=== PATIENT | male | born 1970 | race Caucasian/White ===

== ENCOUNTER 2018-02-09 21:49 | Emergency (ER) | payer OTHER ==
[2018-02-09] MEDS ORDERED: NS 1,000 ML IV ONE ×2 (22:01)
[2018-02-09] MEDS ORDERED: KETOROLAC 30 MG/1 ML SDV IVP ONE ×2 (22:01→23:36)
[2018-02-09] MEDS ORDERED: PROMETHAZINE HCL 25 MG/ML INJ IVP ONE (22:02)
--- NOTE | 2018-02-09 22:04 | EDPHY ---
H & P Stated Complaint: R Flank Pain - + noro virus Time Seen by Provider: 02/09/18 22:00 HPI/ROS: HPI: This is a 47-year-old male who presents with Chief Complaint: Right flank pain Location: Right flank Quality: Pain Duration: 2 hr prior to arrival Signs and Symptoms: no fever, no nausea, no vomiting, no hematemesis, no blood in stool, no abdominal bloating, no diarrhea, no back pain, no urinary symptoms , + testicular/groin pain, no indigestion, no chest pain, no shortness of breath Timing: Acute, constant Severity: Severe Context: Patient reports that approximately 2 hr ago he started to developed right upper flank pain that has now radiating into his right lower quadrant and into his groin. He has not urinated in over 4 hr. He reports that the pain is constant, severe, nonradiating in nature. He denies any fever, nausea, vomiting. No prior history of kidney stones. Eating and drinking well today. Patient reports that he had the norovirus several days ago. Modifying Factors: None Comment: ROS: A comprehensive 10 system review of systems is otherwise negative aside from elements mentioned in the history of present illness. MEDICAL/SURGICAL/SOCIAL HISTORY: Medical history: Generally healthy. Does not take any regular medications. Surgical history: Denies Social history: Family history noncontributory. CONSTITUTIONAL: Moderate distress, middle-aged white male, awake and alert HEENT: Atraumatic and normocephalic, PERRL, EOMI. Nares patent; no rhinorrhea; no nasal mucosal edema. Tympanic membranes clear. Oropharynx clear, no exudate and moist pink mucosa. Airway patent. No lymphadenopathy. No meningismus. Cardiovascular: Normal S1/S2, regular rate, regular rhythm, without murmur rub or gallop. PULMONARY/CHEST: Symmetrical and nontender. Clear to auscultation bilaterally. Good air movement. No accessory muscle usage. ABDOMEN: Soft, nondistended, moderate right flank pain, no rebound, + guarding , no peritoneal signs, no masses or organomegaly. No CVAT. EXTREMITIES: 2/2 pulses, strength 5/5, no deformities, no clubbing, no cyanosis or edema. NEUROLOGICAL: no focal neuro deficits. GCS 15. SKIN: Warm and dry, no erythema. no rash. Good capillary refill. Source: Patient Exam Limitations: No limitations - Personal History Current Tetanus/Diphtheria Vaccine: No Current Tetanus Diphtheria and Acellular Pertussis (TDAP): No - Medical/Surgical History Hx Asthma: No Hx Chronic Respiratory Disease: No Hx Diabetes: No Hx Cardiac Disease: No Hx Renal Disease: No Hx Cirrhosis: No Hx Alcoholism: No Hx HIV/AIDS: No Hx Splenectomy or Spleen Trauma: No Other PMH: denies - Social History Smoking Status: Never smoked Constitutional: Initial Vital Signs Temperature (C) 36.9 C 02/09/18 21:50 Heart Rate 78 02/09/18 21:50 Respiratory Rate 18 02/09/18 21:50 Blood Pressure 132/73 H 02/09/18 21:50 O2 Sat (%) 98 02/09/18 21:50 O2 Delivery Mode Room Air Allergies/Adverse Reactions: No Known Allergies Allergy (Unverified 02/09/18 21:50) Home Medications: Medication Instructions Recorded Tamsulosin HCl [Flomax 0.4 MG (*)] 0.4 mg PO DAILY #10 cap 02/10/18 oxyCODONE HCL/ACETAMINOPHEN 1 each PO Q4-6PRN PRN #12 tablet 02/10/18 [Percocet 7.5-325 mg Tablet] Medical Decision Making - Diagnostics Imaging Results: Imaging Impressions Abdomen/Pelvis CT 02/09/18 22:02 Impression: 1. Distal right 4.5 mm ureteral calculus, 2 cm upstream from the bladder, results in moderate hydronephrosis. 2. No nephrolithiasis 3. Otherwise negative study. Findings discussed with Emergency Department physician, Blanquita Costa at 22:22. Attention: This CT examination is specifically designed to evaluate patients who are clinically suspected of having acute obstructive uropathy. This examination does not use radiographic contrast, and as such, provides only a limited evaluation of the abdomen, pelvis and retroperitoneum. If there is further clinical suspicion for pathological conditions other than obstructive uropathy, a complete CT evaluation of the abdomen and pelvis utilizing intravenous, oral, and rectal contrast should be considered. ED Course/Re-evaluation: Vital signs reviewed and stable upon arrival. No systemic signs. IV access and laboratory studies, urinalysis including CT abdomen and pelvis scan without contrast ordered Patient given 2 L normal saline, IV promethazine 12.5 mg, IV Toradol 30 mg and IV morphine 4 mg 2220: Called by Dr. Mandujano, CT abdomen and pelvis scan shows 4.5 x 3 mm distal right ureteral calculus that is approximately 2 cm superior to the bladder with moderate hydronephrosis. 2335: Urine sample obtained. Patient now shivering in complaining of 4/10 right flank pain. IV Toradol 30 mg and IV morphine 4 mg given 0040: Reassessed patient who reports relief of symptoms. He is comfortable being discharged home with pain medication and urology follow-up. This patient was seen under the supervision of my secondary supervising physician. I evaluated care for this patient independently. Discussed this patient with Dr. Norman who did not see the patient. Differential Diagnosis: Flank pain including but not limited to musculoskeletal causes, kidney stone, pyelonephritis, shingles, and intra-abdominal causes such as diverticulitis and appendicitis. - Data Points Laboratory Results: Laboratory Results 02/09/18 22:05 02/09/18 22:05 02/09/18 02/09/18 02/09/18 23:35 22:05 22:05 WBC 7.20 10^3/uL 10^3/uL (3.80-9.50) RBC 5.05 10^6/uL 10^6/uL (4.40-6.38) Hgb 16.2 g/dL g/dL (13.7-17.5) Hct 46.3 % % (40.0-51.0) MCV 91.7 fL fL (81.5-99.8) MCH 32.1 pg pg (27.9-34.1) MCHC 35.0 g/dL g/dL (32.4-36.7) RDW 13.0 % % (11.5-15.2) Plt Count 251 10^3/uL 10^3/uL (150-400) MPV 9.8 fL fL (8.7-11.7) Neut % (Auto) 81.6 % H % (39.3-74.2) Lymph % (Auto) 13.1 % L % (15.0-45.0) [place] % (Auto) 4.6 % % (4.5-13.0) Eos % (Auto) 0.3 % L % (0.6-7.6) Baso % (Auto) 0.1 % L % (0.3-1.7) Nucleat RBC Rel Count 0.0 % % (0.0-0.2) Absolute Neuts (auto) 5.88 10^3/uL 10^3/uL (1.70-6.50) Absolute Lymphs (auto) 0.94 10^3/uL L 10^3/uL (1.00-3.00) Absolute Monos (auto) 0.33 10^3/uL 10^3/uL (0.30-0.80) Absolute Eos (auto) 0.02 10^3/uL L 10^3/uL (0.03-0.40) Absolute Basos (auto) 0.01 10^3/uL L 10^3/uL (0.02-0.10) Absolute Nucleated RBC 0.00 10^3/uL 10^3/uL (0-0.01) Immature Gran % 0.3 % % (0.0-1.1) Immature Gran # 0.02 10^3/uL 10^3/uL (0.00-0.10) Sodium 133 mEq/L L mEq/L (135-145) Potassium 3.6 mEq/L mEq/L (3.5-5.2) Chloride 100 mEq/L mEq/L (97-110) Carbon Dioxide 23 mEq/l mEq/l (22-31) Anion Gap 10 mEq/L mEq/L (6-14) BUN 27 mg/dL H mg/dL (7-23) Creatinine 1.2 mg/dL mg/dL (0.7-1.3) Estimated GFR > 60 Glucose 107 mg/dL H mg/dL (70-100) Calcium 9.3 mg/dL mg/dL (8.5-10.4) Urine Color YELLOW Urine Appearance CLEAR Urine pH 5.0 (5.0-7.5) Ur Specific [place] 1.032 H (1.002-1.030) Urine Protein NEGATIVE (NEGATIVE) Urine Ketones 2+ H (NEGATIVE) Urine Blood NEGATIVE (NEGATIVE) Urine Nitrate NEGATIVE (NEGATIVE) Urine Bilirubin NEGATIVE (NEGATIVE) Urine Urobilinogen NEGATIVE EU EU (0.2-1.0) Ur Leukocyte Esterase NEGATIVE (NEGATIVE) Urine Glucose NEGATIVE (NEGATIVE) Medications Given: Discontinued Medications Sodium Chloride (Ns) 1,000 mls @ 0 mls/hr IV ONCE ONE; Wide Open PRN Reason: Protocol Stop: 02/09/18 22:02 Last Admin: 02/09/18 22:15 Dose: 1,000 mls Sodium Chloride (Ns) 1,000 mls @ 0 mls/hr IV ONCE ONE; Wide Open PRN Reason: Protocol Stop: 02/09/18 22:02 Last Admin: 02/09/18 22:15 Dose: 1,000 mls Ketorolac Tromethamine (Toradol) 30 mg IVP EDNOW ONE Stop: 02/09/18 22:02 Last Admin: 02/09/18 22:16 Dose: 30 mg Ketorolac Tromethamine (Toradol) 30 mg IVP EDNOW ONE Stop: 02/09/18 23:37 Last Admin: 02/09/18 23:39 Dose: 30 mg Morphine Sulfate (Morphine) 4 mg IVP EDNOW ONE Stop: 02/09/18 22:03 Last Admin: 02/09/18 22:15 Dose: 4 mg Morphine Sulfate (Morphine) 4 mg IVP EDNOW ONE Stop: 02/10/18 00:03 Last Admin: 02/10/18 00:08 Dose: 4 mg Oxycodone/Acetaminophen (Percocet 5/325mg Prepack#4) 1 btl TAKEHOME EDNOW ONE Stop: 02/09/18 22:44 Last Admin: 02/09/18 22:53 Dose: 1 btl Promethazine HCl (Phenergan) 12.5 mg IVP ONCE ONE Stop: 02/09/18 22:03 Last Admin: 02/09/18 22:19 Dose: 12.5 mg Tamsulosin HCl (Flomax) 0.4 mg PO EDNOW ONE Stop: 02/09/18 22:41 Last Admin: 02/09/18 22:47 Dose: 0.4 mg Departure - Departure Disposition: Home, Routine, Self-Care Clinical Impression: Ureterolithiasis, Renal colic on right side Condition: Good Instructions: Oxycodone/Acetaminophen (By mouth), Kidney Stones (ED), Renal Colic (ED), How to Strain Your Urine (ED) Additional Instructions: Consume a minimum of 10-12 glasses of water or electrolyte fluid replacement drinks that include Gatorade, Powerade, Pedialyte. Take Flomax daily as needed until stone passes. Strain all urine until your stone passes. Take Tylenol 650 mg every 4 hours and/or Ibuprofen 600 mg every 8 hours with food as needed for pain. Use Percocet every 6 hours as needed for severe/break through pain. Do not use Tylenol and Percocet concomitantly. Follow-up with Urology in the next 1-2 weeks. Return to the Emergency Room if symptoms do not resolve in the next 48-72 hours , you spike a fever > 102 F, or experience intractable abdominal pain/nausea/ vomiting. Referrals: MARIA ANTONIA DAY [Primary Care Provider] - As per Instructions Samuel Mireles MD [Medical Doctor] - As per Instructions Prescriptions: oxyCODONE HCL/ACETAMINOPHEN [Percocet 7.5-325 mg Tablet] 1 each PO Q4-6PRN PRN # 12 tablet PRN Reason: Pain, Severe Tamsulosin HCl [Flomax 0.4 MG (*)] 0.4 mg PO DAILY #10 cap
[2018-02-09 22:16] LABS: PLATELET COUNT 251 10^3/uL (150-400)
[2018-02-09] MEDS ORDERED: TAMSULOSIN HCL 0.4 MG CAP PO ONE (22:40)
[2018-02-09] MEDS ORDERED: OXYCODONE/APAP 5/325MG PREPACK#4 BTL TAKEHOME ONE (22:43)
[2018-02-10 00:10] VITALS: BP 120/72
== END 2018-02-10 00:41 | disposition home or self-care (01) ==
DX: N20.1 Calculus of ureter (principal); N23 Unspecified renal colic; E86.9 Volume depletion, unspecified
CPT/HCPCS: 96374; J1885; J2270; J2550